=== PATIENT | female | born 1995 | race American Indian/Alaskan Native ===

== ENCOUNTER 2019-12-30 10:28 | Emergency (ER) | payer OTHER, MEDICAID ==
[2019-12-30] MEDS ORDERED: HYDROcodone/ACETAMINOPHEN 5-325 MG TAB ONE (11:54)
[2019-12-30] MEDS: HYDROcodone/ACETAMINOPHEN 5-325 MG TAB PO ONE (12:03)
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
[2019-12-30 13:55] VITALS: BP 128/72
== END 2019-12-30 13:53 | disposition home or self-care (01) ==
LOC: ED 10:28
DX: M75.52 Bursitis of left shoulder (principal); M24.222 Disorder of ligament, left elbow; Z79.899 Other long term (current) drug therapy